=== PATIENT | male | born 2000 | race Two or more races ===

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

== ENCOUNTER 2023-11-03 18:51 | Emergency (ER) | payer MEDICAID ==
[~2023-11-03] VITALS: Ht 198.1 cm; Wt 97.9 kg
[2023-11-03 19:30] VITALS: BP 103/52; PULSE 77; TEMP 98.4; O2SAT 98
[2023-11-03] MEDS ORDERED: dexamethasone sod phosphate 10mg/ml inj IM STA (19:35)
[2023-11-03] MEDS ORDERED: cyclobenzaprine 10mg tablet PO ONE (19:35)
[2023-11-03] MEDS ORDERED: HYDROcodone/acetaminophen 5mg/325mg tablet PO ONE (19:35)
[2023-11-03] MEDS ORDERED: ketorolac trometh inj. 60 MG/2 ML VIAL IM ONE (19:35)
[2023-11-03 20:21] VITALS: RESP 16
[2023-11-03 20:44] LABS: BILIRUBIN,URINE NEGATIVE (Neg); CLARITY,URINE CLOUDY (Clear); COLOR,URINE YELLOW (Yellow); GLUCOSE, URINE NEGATIVE (Neg); KETONES,URINE NEGATIVE (Neg); LEUKOCYTE ESTERASE ,URINE NEGATIVE (Neg); NITRITES, URINE NEGATIVE (Neg); OCCULT BLOOD,URINE NEGATIVE (Neg); PROTEIN,URINE NEGATIVE (Neg); UROBILINOGEN,URINE 0.2 E.U/dL (0.2-1.0)
[2023-11-03 20:46] LABS: UA COLLECTION TYPE CLN CATCH MIDSTREAM
[2023-11-03 20:58] LABS: MUCUS STRANDS NONE SEEN /LPF (Neg); RBC,URINE 0-2 /HPF (0-2); SQUAMOUS EPITHELIAL CELL,UR FEW /LPF (FEW); TRANSITIONAL EPI CELLS,URINE FEW /HPF; WBC,URINE 0-4 /HPF (0-4)
[2023-11-03 20:59] LABS: AMORPHOUS PHOSPHATES 4+; BACTERIA,URINE FEW /HPF (Neg)
[2023-11-03 22:00] LABS: BASOPHILS % (AUTO) 0.3 % (0-1); EOSINOPHILS % (AUTO) 0.6 % (0-6); HEMATOCRIT 42.7 % (42.0-52.0); HEMOGLOBIN 14.7 g/dl (14.0-17.9); LYMPHOCYTES # (AUTO) 0.9 X10'3 (1.1-4.8); LYMPHOCYTES % (AUTO) 12.1 % (21-51); MEAN CORPUSCULAR HEMOGLOBIN 29.6 PG (27.0-31.0); MEAN CORPUSCULAR HGB CONC 34.3 g/dL (33.0-36.5); MEAN CORPUSCULAR VOLUME 86.3 FL (78-98); MEAN PLATELET VOLUME 7.9 FL (7.4-10.4); MONOCYTES # (AUTO) 0.2 X10'3 (0-0.9); MONOCYTES % (AUTO) 2.9 % (2-12); NEUTROPHILS # (AUTO) 6.4 X10'3 (1.8-7.7); NEUTROPHILS % (AUTO) 84.1 % (42-75); PLATELET COUNT 165 X10'3 (140-440); RED BLOOD COUNT 4.95 X10'6 (4.70-6.10); RED CELL DISTRIBUTION WIDTH 13.7 % (11.5-14.5); WHITE BLOOD COUNT 7.7 X10'3 (4.5-11.0)
[2023-11-03 22:03] LABS: ALBUMIN 3.9 G/DL (3.4-5.0); AMYLASE 33 U/L (25-115); ANION GAP 6 (8-16); BLOOD UREA NITROGEN 22 MG/DL (7-18); BUN/CREATININE RATIO 23.2 (10.0-20.0); CALCIUM 9.4 MG/DL (8.5-10.1); CHLORIDE 105 MMOL/L (99-107); CREATININE 0.95 MG/DL (0.60-1.10); GLUCOSE 87 MG/DL (70-104); LIPASE 26 U/L (16-77); POTASSIUM 4.5 MMOL/L (3.5-5.1); SODIUM 141 MMOL/L (135-145); TOTAL CARBON DIOXIDE 30.2 MMOL/L (24-32); eCRCL 159 ML/MIN; eGFR > 90 ML/MIN
[2023-11-03 23:35] LABS: URINE AMPHETAMINE SCREEN NEGATIVE (Neg); URINE BARBITUATE SCREEN NEGATIVE (Neg); URINE BENZODIAZEPINES SCREEN NEGATIVE (Neg); URINE CANNABINOID SCREEN POSITIVE (Neg); URINE COCAINE SCREEN NEGATIVE (Neg); URINE METHADONE SCREEN NEGATIVE (Neg); URINE OPIATE SCREEN NEGATIVE (Neg); URINE PHENCYCLIDINE SCREEN NEGATIVE (Neg)
[2023-11-03] MEDS ORDERED: CYCL-1 PO (23:36)
[2023-11-03] MEDS ORDERED: IBUP-1984 PO (23:36)
[2023-11-03 23:49] LABS: ALANINE AMINOTRANSFERASE 30 U/L (12-78); ALBUMIN 4.4 G/DL (3.4-5.0); ALBUMIN/GLOBULIN RATIO 1.5 (1.1-1.5); ALKALINE PHOSPHATASE 74 IU/L (46-116); ANION GAP 9 (8-16); ASPARTATE AMINO TRANSFERASE 13 U/L (10-37); BILIRUBIN,TOTAL 0.5 MG/DL (0.1-1.0); BLOOD UREA NITROGEN 22 MG/DL (7-18); BUN/CREATININE RATIO 24.4 (10.0-20.0); CALCIUM 9.9 MG/DL (8.5-10.1); CHLORIDE 104 MMOL/L (99-107); GLUCOSE 97 MG/DL (70-104); POTASSIUM 4.5 MMOL/L (3.5-5.1); SODIUM 141 MMOL/L (135-145); TOTAL PROTEIN 7.4 G/DL (6.4-8.2); eCRCL 168 ML/MIN; eGFR > 90 ML/MIN
[2023-11-05 18:21] LABS: HBSAG SCREEN Negative (Negative); HEP A AB, IGM Negative (Negative); HEP B CORE AB, IGM Negative (Negative); HEPATITIS C VIRUS ANTIBODY Non Reactive (Non Reactive)
== END 2023-11-04 00:20 | disposition home or self-care (01) ==
LOC: ER 18:52
DX: M54.50 Low back pain, unspecified (principal); R16.0 Hepatomegaly, not elsewhere classified
CPT/HCPCS: 36415; 72100; 74176; 80048; 80053; 80074; 80305; 81001; 82150; 83690; 85025; 96372; 99285; J1100; J1885

== ENCOUNTER 2024-03-06 12:02 | Emergency (ER) | payer MEDICAID ==
[~2024-03-06] VITALS: Ht 198.1 cm; Wt 93.3 kg
[~2024-03-06 12:02] MED LIST changes: +CYCL-1 PO
[2024-03-06] MEDS ORDERED: AMOX-100 PO (13:18)
[2024-03-06] MEDS: CefTRIAXone 1000mg IM Kit (w/lidocaine diluent) IM ONE (13:27)
[2024-03-06 13:39] VITALS: BP 122/64; PULSE 70; RESP 16; TEMP 98.5; O2SAT 97
== END 2024-03-06 13:42 | disposition home or self-care (01) ==
LOC: ER 12:03
DX: J02.9 Acute pharyngitis, unspecified (principal); Z79.899 Other long term (current) drug therapy
CPT/HCPCS: 96372; 99283; J0696

== ENCOUNTER 2025-05-30 14:07 | Emergency (ER) | payer MEDICAID ==
[~2025-05-30] VITALS: Ht 195.6 cm; Wt 92.1 kg
[2025-05-30 15:23] LABS: MEAN PLATELET VOLUME 8.1 FL (7.4-10.4); RED CELL DISTRIBUTION WIDTH 13.4 % (11.5-14.5)
[2025-05-30 15:27] LABS: LEUKOCYTE ESTERASE ,URINE NEGATIVE (Neg); NITRITES, URINE NEGATIVE (Neg); OCCULT BLOOD,URINE NEGATIVE (Neg)
[2025-05-30 15:28] LABS: UA COLLECTION TYPE CLN CATCH MIDSTREAM
[2025-05-30 15:40] LABS: CREATININE 0.90 MG/DL (0.60-1.10); TOTAL CARBON DIOXIDE 27.3 MMOL/L (24-32); eCRCL 161 ML/MIN; eGFR > 90 ML/MIN
[2025-05-30 15:41] LABS: SQUAMOUS EPITHELIAL CELL,UR FEW /LPF (FEW)
--- NOTE | 2025-05-30 16:20 | Physician Documentation ---
History of Present Illness ~ Chief Complaint: Urinary Symptoms Stated Complaint: ABD PAIN Time Seen by MD: 15:58 Primary Medical Doctor: [facility] Mode of Arrival: Ambulatory HPI This is25 male who states that he had a recent bout of constipation and clean himself out with stool softeners and laxative. denies any pain with urination. He states that he is just here to get checked out Day of Onset: May 30, 2025 Medication Reconciliation Allergies: Coded Allergies: No Known Allergies (Unverified , 03/06/24) Scheduled Cyclobenzaprine* (Cyclobenzaprine*), 1 TAB PO Q8H Scheduled PRN Diazepam (Valium), 1 TABLET PO HS PRN for spasm Miscellaneous Medications Home Med List (No Home Medications), (Reported) Past Medical History Past Medical History: No Pertinent History Past Surgical History: no surgical history Alcohol Use: None Lives with: Family Lives In: Home Occupation: child Review of Systems All Other Systems at this time: Reviewed and Negative ROS As stated above in the HPI, otherwise all systems are reviewed and negative. Physical Exam Vital Signs: Temperature: 98.9, Source: Temporal, Heart Rate: 86, Respiratory Rate: 16, BP: 133/49, Pulse Oximetry: 98, Weight: 92.100 Oxygen Flow Rate: 0 Physical Exam General: Alert, no apparent distress. Gastrointestinal: Soft, nontender, nondistended. Bowels sounds present. Extremities: Normal range of motion, no deformity. Neurologic: Oriented x4. Psychiatric: Normal mood and affect. Skin: Normal color, warm and dry. No edema, no ecchymosis. Progress Results/Orders Results/Orders Vital Signs 05/30/25 05/30/25 05/30/25 14:35 14:57 16:33 Temp 98.9 98.9 Pulse 86 75 Resp 16 16 B/P (MAP) 133/49 99/54 Pulse Ox 98 97 O2 Flow Rate 0 Laboratory Tests Test 05/30/25 14:50 05/30/25 15:04 Urine Specimen Description Cln catch midstream Urine Color Yellow Urine Clarity Slightly cloudy Urine pH 6.5 Urine Specific [place] 1.010 Urine Protein Negative Urine Glucose (UA) Negative Urine Ketones >=80 Urine Occult Blood Negative Urine Nitrite Negative Urine Bilirubin Small Urine Urobilinogen 0.2 Urine Leukocyte Esterase Negative Urine RBC 0-2 Urine WBC 0-4 Urine Squamous Epithelial Cells Few Urine Bacteria None seen Urine Culture Indicated Not ind Volume Urine Centrifuged 10 ml Urine Comment White Blood Count 4.4 L Red Blood Count 5.57 Hemoglobin 16.2 Hematocrit 46.7 Mean Corpuscular Volume 83.8 Mean Corpuscular Hemoglobin 29.2 Mean Corpuscular Hemoglobin Concent 34.8 Red Cell Distribution Width 13.4 Platelet Count 188 Mean Platelet Volume 8.1 Neutrophils (%) (Auto) 64.9 Lymphocytes (%) (Auto) 26.1 Monocytes (%) (Auto) 5.7 Eosinophils (%) (Auto) 2.7 Basophils (%) (Auto) 0.6 Neutrophils # (Auto) 2.9 Lymphocytes # (Auto) 1.2 Monocytes # (Auto) 0.3 Eosinophils # (Auto) 0.1 Basophils # (Auto) 0.0 CBC Comment Sodium Level 139 Potassium Level 4.2 Chloride Level 102 Carbon Dioxide Level 27.3 Anion Gap 10 Blood Urea Nitrogen 12 Creatinine 0.90 Estimated GFR/1.73 m2 > 90 BUN/Creatinine Ratio 13.3 Glucose Level 88 Calcium Level 9.4 Total Bilirubin 1.1 H Aspartate Amino Transf (AST/SGOT) 13 Alanine Aminotransferase (ALT/SGPT) 16 Alkaline Phosphatase 51 Total Protein 7.6 Albumin 4.5 Globulin 3.1 Albumin/Globulin Ratio 1.5 Lipase 14 L Chemistry Comments Medical Decision Making Findings Patient does not present acutely ill his laboratory values are reassuring. I talked to him about staying adequately hydrated to prevent further constipation and to maintain his BMs via MiraLax if he continues to have issues Urinary Diff Dx:Considerations: Include: AAA, Aortic dissection, Appendicitis, Appendicitis train, Bowel obstruction, Bladder outlet obstruc., Cholelithiasis, Choleangitis, Cholecystitis, DJD, Epididymitis, Hepatitis, HNP, Impaction, Musculoskeletal pain, Pancreatitis, Postoperative Comp., Prostatitis, Pyelonephritis, Renal failure, Renal infarction, Strain, Urolithiasis, Urinary Obstruction, Urethritis, Urinary retention, UTI, Other Departure Disposition: 01 HOME / SELF CARE / HOMELESS Impression: Primary Impression: Abdominal pain Condition: Stable Discharge Instructions: Constipation, Adult, [id number] Referrals: NO PRIMARY CARE PROVIDER (PCP) Signature Scribe Signature: g Attestation: Scribed for Jonathan Birch Certified Ophthalmic Technologist by Jonathan Mckenzie NP . 05/30/25 23:02 JONATHAN BIRCH NP May 30, 2025 16:20
[2025-05-30 16:33] VITALS: BP 99/54; PULSE 75; RESP 16; TEMP 98.9; O2SAT 97
== END 2025-05-30 16:35 | disposition home or self-care (01) ==
LOC: ER 14:07
DX: R10.30 Lower abdominal pain, unspecified (principal); Z79.899 Other long term (current) drug therapy
CPT/HCPCS: 36415; 80053; 81001; 83690; 85025; 99283

== ENCOUNTER 2025-06-01 11:22 | Emergency (ER) | payer MEDICAID ==
[~2025-06-01] VITALS: Ht 198.1 cm; Wt 91.7 kg
[2025-06-01 12:24] LABS: MEAN PLATELET VOLUME 8.0 FL (7.4-10.4); RED CELL DISTRIBUTION WIDTH 13.6 % (11.5-14.5)
[2025-06-01 12:34] VITALS: TEMP 99.3
[2025-06-01 12:45] LABS: CREATININE 1.05 MG/DL (0.60-1.10); TOTAL CARBON DIOXIDE 28.5 MMOL/L (24-32); eCRCL 141 ML/MIN; eGFR 88 ML/MIN
[2025-06-01 12:58] LABS: LEUKOCYTE ESTERASE ,URINE NEGATIVE (Neg); NITRITES, URINE NEGATIVE (Neg); OCCULT BLOOD,URINE NEGATIVE (Neg)
[2025-06-01 13:00] LABS: UA COLLECTION TYPE CLN CATCH MIDSTREAM
--- NOTE | 2025-06-01 13:10 | Physician Documentation ---
History of Present Illness Chief Complaint: Abdominal Pain Stated Complaint: POSS AAA Time Seen by MD: 11:45 Primary Medical Doctor: [facility] Source: patient Mode of Arrival: POV Exam Limitations: no limitations HPI Patient in with constipation and difficulty urinating over the past couple of days. He admits he has not been eating or drinking as much because he is afraid he will not be able to have a bowel movement or urinate. A day ago he started having a little bit of left lower quadrant pain and left flank pain. No history of surgeries. Otherwise healthy. Medication Reconciliation Allergies: Coded Allergies: No Known Allergies (Unverified , 03/06/24) Scheduled Cyclobenzaprine* (Cyclobenzaprine*), 1 TAB PO Q8H Scheduled PRN Diazepam (Valium), 1 TABLET PO HS PRN for spasm Miscellaneous Medications Home Med List (No Home Medications), (Reported) Past Medical History Past Medical History: No Pertinent History Past Surgical History: no surgical history Alcohol Use: None Lives with: Family Lives In: Home Occupation: child Review of Systems All Other Systems at this time: Reviewed and Negative Physical Exam Vital Signs: Temperature: 99.3, Source: Oral, Heart Rate: 67, Respiratory Rate: 18, BP: 109/68, Pulse Oximetry: 99, Weight: 91.700 Oxygen Flow Rate: 0 General Appearance: alert Neck: normal inspection, full range of motion Respiratory: no respiratory distress Chest: no accessory muscle use Gastrointestinal: normal palpation, non-tender Extremities: normal range of motion, non-tender Neurologic: oriented x4 Psychiatric: normal mood/affect Skin: normal color, warm/dry Progress Results/Orders Results/Orders Orders - JOEL HUGHES MD Saline Lock (06/01/25 11:45) Ct Abdomen Pelvis (06/01/25 12:04) Ua W/Microscopic, Cult If Ind (06/01/25 12:34) Completed Orders - JOEL HUGHES MD Cbc/Diff (06/01/25 11:45) Lipase (06/01/25 11:45) CMP (06/01/25 11:45) Ct Abdomen Pelvis (06/01/25 12:04) Vital Signs 06/01/25 06/01/25 06/01/25 11:29 12:31 12:34 Temp 99.3 99.3 Pulse 78 67 Resp 16 18 B/P (MAP) 129/43 109/68 (82) Pulse Ox 98 99 O2 Flow Rate 0 0 Laboratory Tests Test 06/01/25 12:00 06/01/25 12:34 White Blood Count 3.6 L Red Blood Count 5.20 Hemoglobin 15.2 Hematocrit 44.2 Mean Corpuscular Volume 84.9 Mean Corpuscular Hemoglobin 29.3 Mean Corpuscular Hemoglobin Concent 34.5 Red Cell Distribution Width 13.6 Platelet Count 169 Mean Platelet Volume 8.0 Neutrophils (%) (Auto) 63.7 Lymphocytes (%) (Auto) 26.2 Monocytes (%) (Auto) 6.9 Eosinophils (%) (Auto) 2.6 Basophils (%) (Auto) 0.6 Neutrophils # (Auto) 2.3 Lymphocytes # (Auto) 0.9 L Monocytes # (Auto) 0.2 Eosinophils # (Auto) 0.1 Basophils # (Auto) 0.0 CBC Comment Sodium Level 141 Potassium Level 3.8 Chloride Level 104 Carbon Dioxide Level 28.5 Anion Gap 9 Blood Urea Nitrogen 8 Creatinine 1.05 Estimated GFR/1.73 m2 88 BUN/Creatinine Ratio 7.6 L Glucose Level 102 Calcium Level 9.2 Total Bilirubin 1.1 H Aspartate Amino Transf (AST/SGOT) 9 L Alanine Aminotransferase (ALT/SGPT) 17 Alkaline Phosphatase 48 Total Protein 7.3 Albumin 4.4 Globulin 2.9 Albumin/Globulin Ratio 1.5 Lipase 18 Chemistry Comments Urine Specimen Description Cln catch midstream Urine Color [place] Urine Clarity Clear Urine pH 6.5 Urine Specific [place] 1.025 Urine Protein 30 H Urine Glucose (UA) Negative Urine Ketones 15 H Urine Occult Blood Negative Urine Nitrite Negative Urine Bilirubin Moderate Urine Urobilinogen 1.0 Urine Leukocyte Esterase Negative Volume Urine Centrifuged 10 ml Urine Comment Medical Decision Making Additional Comments Patient in with mild left lower quadrant pain. He does state that he has had difficulty urinating that not much urine is coming out. No burning with urination. Has not been sexually active in 5 years. He admits to me however he has not been drinking any water in the past [address] scan shows a little trace fluid in the pelvis but no significant findings. Labs unremarkable. Discharging patient home in good condition. I did recommend to him that he needs to start drinking water and follow up or return here if not improving or if worsening. Counseled that not drinking any water could lead to kidney f ailure. Likely not paying much because he is not drinking. He states that he had heard something a couple of days ago that freaked him out and he got anxiety and he decided that if something was wrong he but are not drink because he did not want his stomach to burst. He had heard that somebody's gallbladder had 1st and so he felt like he did not want to drink water if he could not pee. Again discharging home in good condition. Return if worsening. Follow up with PCP in the next 1-2 weeks. Departure Impression: Primary Impression: Abdominal pain Qualified Codes: R10.32 - Left lower quadrant pain Additional Impression: Dehydration Condition: Stable Discharge Instructions: Abdominal Pain (Nonspecific) Additional Instructions: Follow up with your doctor in the next 1-2 weeks. Return here in the interim if new or worsening symptoms prior to follow up. Referrals: NO PRIMARY CARE PROVIDER (PCP) Education Educated: Patient Educated regarding: diagnosis, need for follow up Signature Scribe Signature: No scribe used Attestation: No scribe used JOEL HUGHES MD Jun 01, 2025 13:10
[2025-06-01 13:13] LABS: MUCUS STRANDS FEW /LPF (Neg); SQUAMOUS EPITHELIAL CELL,UR FEW /LPF (FEW)
--- NOTE | 2025-06-01 14:18 | RADIOLOGY REPORT ---
COMPUTERIZED TOMOGRAPHY ABDOMEN AND PELVIS WITHOUT CONTRAST REASON FOR EXAM: LLQ and left flank pain, difficulty urinating, constipated COMPARISON: CT CT ABDOMEN PELVIS on DOS: 11/03/23 TECHNIQUE: Spiral scans were acquired from the diaphragm to the symphysis pubis without intravenous c ontrast administration. 2-D coronal and sagittal reformatted images were provided. Radiation optimiza tion: All CT scans at this facility use at least one of these dose optimization techniques: Automated exposure control mA and/or kV adjustment per patient size (includes targeted exams where dose is mat ched to clinical indication) or iterative reconstruction. RADIATION DOSE: CTDI: 14 mGy DLP: 703 mGy-cm FINDINGS: The visualized lung bases are clear. There is no pleural effusion. There is no pericardial effusion. The spleen is not enlarged. The liver is borderline enlarged at 18.4 cm in length. Evaluation of the abdominal organs is suboptimal in the absence of intravenous contrast. No calcified gallstone is iden tified. Unenhanced appearance of the pancreas is grossly unremarkable. The adrenal glands are normal. The kidneys are similar in size. There is no hydronephrosis of either kidney. The urinary bladder is decompressed and is not well evaluated. No renal, ureteral, or bladder calculus is identified. The re is no abdominal aortic aneurysm. No free fluid is identified in the abdomen or pelvis. The prosta te and seminal vesicles are within normal limits. There is trace free fluid in the dependent pelvis. The colonic stool burden is small. The appendix is normal. There is no distention of the small bowel to suggest obstruction. No pathologic lymphadenopathy is identified by size criteria. No acute osse ous abnormality is identified. IMPRESSION: Trace free fluid in the dependent pelvis of uncertain etiology. This is abnormal in a male patient. No evidence of bowel obstruction. Normal appendix. No renal, ureteral, or bladder calculus. The colon ic stool burden is small.
[2025-06-01 15:10] VITALS: BP 112/60; PULSE 62; RESP 11; O2SAT 98
== END 2025-06-01 15:14 | disposition home or self-care (01) ==
LOC: ER 11:24
DX: R10.32 Left lower quadrant pain (principal); E86.0 Dehydration; K59.00 Constipation, unspecified; Z79.899 Other long term (current) drug therapy
CPT/HCPCS: 36415; 74176; 80053; 81001; 83690; 85025; 99284